=== PATIENT | male | born 1980 ===

== ENCOUNTER 2018-08-29 08:26 | Day surgery (SDC) | payer OTHER ==
[~2018-08-29 08:26] MED LIST: LEVOXYL50 MCG PO
== END 2018-08-29 15:50 | disposition home or self-care (01) ==
LOC: CIR.AMB 08:26
DX: D12.9 Benign neoplasm of anus and anal canal (principal); A63.0 Anogenital (venereal) warts

== ENCOUNTER 2022-02-23 07:13 | Day surgery (SDC) | payer OTHER ==
[~2022-02-23 07:13] MED LIST changes: +TIROSINT100 MCG PO
== END 2022-02-23 16:00 | disposition home or self-care (01) ==
LOC: CIR.AMB 07:13
PROVIDERS: ATTEND Colon & Rectal Surgery
DX: A63.0 Anogenital (venereal) warts (principal); K64.1 Second degree hemorrhoids; L82.1 Other seborrheic keratosis; E03.9 Hypothyroidism, unspecified